=== PATIENT | female | born 1975 | race Caucasian/White ===

== ENCOUNTER 2020-11-07 18:23 | Emergency (ER) | payer MEDICAID ==
[~2020-11-07] VITALS: Ht 165.1 cm; Wt 68.0 kg
[2020-11-07 18:23] VITALS: BP_SYST 112
[2020-11-07 20:10] VITALS: BP_SYST 112
== END 2020-11-07 20:10 | disposition home or self-care (01) ==
LOC: SED 18:23
DX: S00.83XA Contusion of other part of head, initial encounter (principal); W22.8XXA Striking against or struck by other objects, initial encounter; Y93.89 Activity, other specified; Y92.89 Other specified places as the place of occurrence of the external cause; Y99.8 Other external cause status
CPT/HCPCS: 70450-TC; 76376; 81025; 99284